=== PATIENT | female | born 1950 | race Two or more races ===

== ENCOUNTER 2020-06-04 20:31 | Inpatient (IN) | payer OTHER ==
[~2020-06-04] VITALS: Ht 154.9 cm; Wt 65.8 kg
[2020-06-05] MEDS ORDERED: OMEPRAZOLE20 MG (08:21)
[2020-06-05] MEDS ORDERED: LEVOTHYROXINE100 MCG (08:21)
[2020-06-05] MEDS ORDERED: LOSARTAN POTASS25 MG (08:21)
[2020-06-05] MEDS ORDERED: GABAPENTIN100 M2 (08:22)
[2020-06-05] MEDS ORDERED: SULINDAC200 MG (08:22)
[2020-06-05] MEDS ORDERED: TRAM1TAB98 (08:22)
[2020-06-05] MEDS ORDERED: ATORVASTATIN CA20 MG (08:22)
== END 2020-06-20 17:22 | disposition home or self-care (01) | DRG 391 ==
LOC: SURH 20:31
PROVIDERS: ADMIT Surgery; ATTEND Surgery
PROC: B24BYZZ Ultrasonography of Heart with Aorta using Other Contrast (ICD-10-PCS; 2020-06-05)
PROC: BW2510Z Computerized Tomography (CT Scan) of Chest, Abdomen and Pelvis using Low Osmolar Contrast, Unenhanced and Enhanced (ICD-10-PCS; 2020-06-08)
PROC: BW21ZZZ Computerized Tomography (CT Scan) of Abdomen and Pelvis (ICD-10-PCS; 2020-06-08)
PROC: 0BBC3ZX Excision of Right Upper Lung Lobe, Percutaneous Approach, Diagnostic (ICD-10-PCS; principal; 2020-06-18)
DX: K57.20 Diverticulitis of large intestine with perforation and abscess without bleeding (principal); K65.1 Peritoneal abscess; A04.72 Enterocolitis due to Clostridium difficile, not specified as recurrent; N82.4 Other female intestinal-genital tract fistulae; D64.9 Anemia, unspecified; E07.81 Sick-euthyroid syndrome; E03.9 Hypothyroidism, unspecified; I10 Essential (primary) hypertension; R53.81 Other malaise; R91.1 Solitary pulmonary nodule; Z20.822 Contact with and (suspected) exposure to COVID-19
CPT/HCPCS: 240

== ENCOUNTER 2020-08-09 16:31 | Emergency (ER) | payer OTHER ==
[~2020-08-09] VITALS: Ht 162.6 cm; Wt 60.3 kg
[~2020-08-09 16:31] MED LIST: ATORVASTATIN CA20 MG; GABAPENTIN100 M2; LEVOTHYROXINE100 MCG; LOSARTAN POTASS25 MG; OMEPRAZOLE20 MG; SULINDAC200 MG; TRAM1TAB98
[2020-08-09] MEDS ORDERED: PEPCID AC10 MG PO (17:32)
[2020-08-09] MEDS ORDERED: LEVOTHYROXINE25 MCG PO (17:32)
[2020-08-09] MEDS ORDERED: PHENERGAN25 MG/1 ML IM (17:33)
[2020-08-09] MEDS ORDERED: INTESTINEX680 M2 PO (17:33)
== END 2020-08-09 20:46 | disposition home or self-care (01) ==
LOC: ER 16:31
DX: K57.90 Diverticulosis of intestine, part unspecified, without perforation or abscess without bleeding (principal); R10.32 Left lower quadrant pain

== ENCOUNTER 2021-03-04 10:30 | Inpatient (IN) | payer OTHER ==
[~2021-03-04] VITALS: Ht 152.4 cm; Wt 59.0 kg
[~2021-03-04 10:30] MED LIST changes: +INTESTINEX680 M2 PO; +LEVOTHYROXINE25 MCG PO; +PEPCID AC10 MG PO; +PHENERGAN25 MG/1 ML IM
[2021-03-04] MEDS ORDERED: VENLAFAXINE H37.5 M2 PO (14:54)
[2021-03-04] MEDS ORDERED: LOSARTAN POTASS25 MG PO (14:54)
[2021-03-04] MEDS ORDERED: GABAPENTIN100 M2 PO (14:55)
[2021-03-04] MEDS ORDERED: ARICEPT5 MG PO (14:55)
[2021-03-04] MEDS ORDERED: TRAM1TAB98 PO (14:56)
[2021-03-04] MEDS ORDERED: ZINC50 M1 PO (14:56)
[2021-03-04] MEDS ORDERED: CALCIUM500 M2 PO (14:57)
[2021-03-04] MEDS ORDERED: C-NATE DHA SOF1 EACH PO (14:57)
[2021-03-10] MEDS ORDERED: PRE PROTEIN1 EACH (16:09)
[2021-03-10] MEDS ORDERED: TRAZODONE HCL50 MG (16:09)
[2021-03-10] MEDS ORDERED: BUSPIRONE HCL10 MG (16:09)
[2021-03-10] MEDS ORDERED: OMEPRAZOLE20 MG (16:10)
[2021-03-10] MEDS ORDERED: ATORVASTATIN CA20 MG (16:10)
[2021-03-10] MEDS ORDERED: ESCITALOPRAM OX10 MG (16:10)
== END 2021-03-31 19:02 | disposition home or self-care (01) | DRG 330 ==
LOC: O/R 03-10 06:13 → SURG 03-10 06:13 → SURH 03-10 10:30 → SURG 03-10 14:05
PROVIDERS: ADMIT Colon & Rectal Surgery; ATTEND Colon & Rectal Surgery
PROC: 0D1B4Z4 Bypass Ileum to Cutaneous, Percutaneous Endoscopic Approach (ICD-10-PCS; 2021-03-10)
PROC: 0DJD8ZZ Inspection of Lower Intestinal Tract, Via Natural or Artificial Opening Endoscopic (ICD-10-PCS; 2021-03-10)
PROC: 0JR Subcutaneous Tissue and Fascia, Replacement (ICD-10-PCS; 2021-03-10)
PROC: 0UQG4ZZ Repair Vagina, Percutaneous Endoscopic Approach (ICD-10-PCS; 2021-03-10)
PROC: 0TQB4ZZ Repair Bladder, Percutaneous Endoscopic Approach (ICD-10-PCS; 2021-03-10)
PROC: 0DTE4ZZ Resection of Large Intestine, Percutaneous Endoscopic Approach (ICD-10-PCS; principal; 2021-03-10 12:00)
PROC: 3E0336Z Introduction of Nutritional Substance into Peripheral Vein, Percutaneous Approach (ICD-10-PCS; 2021-03-16)
PROC: 02HV33Z Insertion of Infusion Device into Superior Vena Cava, Percutaneous Approach (ICD-10-PCS; 2021-03-16)
PROC: BW21ZZZ Computerized Tomography (CT Scan) of Abdomen and Pelvis (ICD-10-PCS; 2021-03-20)
PROC: B34HZZZ Ultrasonography of Right Upper Extremity Arteries (ICD-10-PCS; 2021-03-20)
DX: K57.20 Diverticulitis of large intestine with perforation and abscess without bleeding (principal); N99.72 Accidental puncture and laceration of a genitourinary system organ or structure during other procedure; N82.8 Other female genital tract fistulae; A04.72 Enterocolitis due to Clostridium difficile, not specified as recurrent; N82.4 Other female intestinal-genital tract fistulae; Z16.12 Extended spectrum beta lactamase (ESBL) resistance; Z20.822 Contact with and (suspected) exposure to COVID-19; R91.1 Solitary pulmonary nodule

== ENCOUNTER 2021-03-04 16:01 | Outpatient (CLI) | payer OTHER ==
[~2021-03-04 16:01] MED LIST changes: +ARICEPT5 MG PO; +C-NATE DHA SOF1 EACH PO; +CALCIUM500 M2 PO; +GABAPENTIN100 M2 PO; +LOSARTAN POTASS25 MG PO; +TRAM1TAB98 PO; +VENLAFAXINE H37.5 M2 PO; +ZINC50 M1 PO
== END 2021-03-04 16:11 | disposition home or self-care (01) ==
LOC: RAD 16:01
PROVIDERS: ATTEND Colon & Rectal Surgery
DX: I10 Essential (primary) hypertension (principal); K57.20 Diverticulitis of large intestine with perforation and abscess without bleeding; N32.1 Vesicointestinal fistula

== ENCOUNTER 2021-05-02 20:45 | Inpatient (IN) | payer OTHER ==
[~2021-05-02] VITALS: Ht 149.9 cm; Wt 59.0 kg
[~2021-05-02 20:45] MED LIST changes: +BUSPIRONE HCL10 MG; +ESCITALOPRAM OX10 MG; +PRE PROTEIN1 EACH; +TRAZODONE HCL50 MG
[2021-05-02] MEDS ORDERED: CIPRO500 MG PO (21:09)
[2021-05-02] MEDS ORDERED: SYNTHROID100 MCG PO (21:10)
[2021-05-04] MEDS ORDERED: OXYBUTYNIN CHLOR5 MG (09:52)
[2021-05-04] MEDS ORDERED: LOPERAMIDE2 MG (09:52)
[2021-05-04] MEDS ORDERED: OMEPRAZOLE20 MG (09:53)
[2021-05-04] MEDS ORDERED: VENLAFAXINE H37.5 M1 (09:53)
[2021-05-04] MEDS ORDERED: TRAZODONE HCL50 MG (09:53)
[2021-05-04] MEDS ORDERED: BUSPIRONE HCL10 MG (09:53)
[2021-05-04] MEDS ORDERED: MELATONIN5 M2 (09:53)
[2021-05-25] MEDS ORDERED: LORATADINE10 MG PO (10:33)
[2021-05-25] MEDS ORDERED: ARICEPT5 MG PO (10:33)
[2021-05-25] MEDS ORDERED: INTESTINEX680 M1 PO (10:33)
[2021-05-25] MEDS ORDERED: OMEPRAZOLE20 MG PO (10:33)
[2021-05-25] MEDS ORDERED: LEVOTHYROXINE50 MCG PO (10:33)
[2021-05-25] MEDS ORDERED: LOSARTAN POTASS25 MG PO (10:33)
[2021-05-25] MEDS ORDERED: VENLAFAXINE H37.5 M1 PO (10:33)
== END 2021-05-25 12:47 | disposition home or self-care (01) | DRG 660 ==
LOC: ER 20:45 → MEDJ 05-03 11:18 → MEDI 05-03 11:18 → MEDJ 05-04 11:14
PROVIDERS: Surgery; ADMIT Internal Medicine Geriatric Medicine; ATTEND Internal Medicine Geriatric Medicine
PROC: BT1FYZZ Fluoroscopy of Left Kidney, Ureter and Bladder using Other Contrast (ICD-10-PCS; 2021-05-05)
PROC: 0T778DZ Dilation of Left Ureter with Intraluminal Device, Via Natural or Artificial Opening Endoscopic (ICD-10-PCS; principal; 2021-05-05 13:00)
PROC: 0T143JD Bypass Left Kidney Pelvis to Cutaneous with Synthetic Substitute, Percutaneous Approach (ICD-10-PCS; 2021-05-06)
PROC: 02HV33Z Insertion of Infusion Device into Superior Vena Cava, Percutaneous Approach (ICD-10-PCS; 2021-05-12)
DX: N39.0 Urinary tract infection, site not specified (principal); N20.1 Calculus of ureter; Z16.12 Extended spectrum beta lactamase (ESBL) resistance; N13.6 Pyonephrosis; B96.5 Pseudomonas (aeruginosa) (mallei) (pseudomallei) as the cause of diseases classified elsewhere; E86.0 Dehydration; E87.8 Other disorders of electrolyte and fluid balance, not elsewhere classified; D72.828 Other elevated white blood cell count; E03.8 Other specified hypothyroidism; I11.9 Hypertensive heart disease without heart failure; Z20.822 Contact with and (suspected) exposure to COVID-19

== ENCOUNTER 2021-07-20 12:18 | Outpatient (CLI) | payer OTHER ==
[~2021-07-20 12:18] MED LIST changes: +CIPRO500 MG PO; +INTESTINEX680 M1 PO; +LEVOTHYROXINE50 MCG PO; +LOPERAMIDE2 MG; +LORATADINE10 MG PO; +MELATONIN5 M2; +OMEPRAZOLE20 MG PO; +OXYBUTYNIN CHLOR5 MG; +SYNTHROID100 MCG PO; +VENLAFAXINE H37.5 M1; +VENLAFAXINE H37.5 M1 PO
== END 2021-07-20 12:21 | disposition home or self-care (01) ==
LOC: TOM 12:18
PROVIDERS: ATTEND Surgery
DX: N20.1 Calculus of ureter (principal)

== ENCOUNTER 2021-10-07 08:23 | Outpatient (CLI) | payer OTHER | END 2021-10-07 08:29 | disposition home or self-care (01) | LOC: RX STUDY 08:23 | PROVIDERS: ATTEND Colon & Rectal Surgery | DX: N32.1 Vesicointestinal fistula (principal) ==

== ENCOUNTER 2022-04-30 12:30 | Inpatient (IN) | payer OTHER ==
[~2022-04-30] VITALS: Ht 152.4 cm; Wt 65.3 kg
[~2022-04-30 12:30] MED LIST changes: +AMOX-CLAV 875-1 EAC1 PO; +CELEXA20 MG PO; +CITALOPRAM HBR20 MG; +DIVALPROEX SOD125 M1; +FAMOTIDINE20 MG PO; +LEVOTHYROXINE75 MCG PO; +NAMENDA5 MG PO; +QUETIAPINE FUMA25 MG PO; +TAMS0.4C PO; +depakote PO
[2022-04-30] MEDS ORDERED: SYNTHROID88 MCG PO (14:47)
[2022-04-30] MEDS ORDERED: DEPAKOTE SPRIN125 MG PO (14:47)
== END 2022-05-07 12:53 | disposition home or self-care (01) | DRG 330 ==
LOC: SURH 05-04 07:00 → SURG 05-05 05:38 → O/R 05-05 05:38 → SURG 05-05 10:42
PROVIDERS: ADMIT Colon & Rectal Surgery; ATTEND Colon & Rectal Surgery
PROC: 0DQB4ZZ Repair Ileum, Percutaneous Endoscopic Approach (ICD-10-PCS; principal; 2022-05-05 07:00)
DX: Z43.2 Encounter for attention to ileostomy (principal); K57.20 Diverticulitis of large intestine with perforation and abscess without bleeding; K66.0 Peritoneal adhesions (postprocedural) (postinfection); I11.9 Hypertensive heart disease without heart failure; E03.9 Hypothyroidism, unspecified; F03.90 Unspecified dementia, unspecified severity, without behavioral disturbance, psychotic disturbance, mood disturbance, and anxiety; F32.A Depression, unspecified

== ENCOUNTER 2022-05-15 13:24 | Emergency (ER) | payer OTHER ==
[~2022-05-15] VITALS: Ht 152.4 cm; Wt 72.6 kg
[~2022-05-15 13:24] MED LIST changes: +DEPAKOTE SPRIN125 MG PO; +SYNTHROID88 MCG PO
[2022-05-15] MEDS ORDERED: DEPAKOTE SPRIN125 MG PO (13:50)
[2022-05-15] MEDS ORDERED: CEFDINIR300 MG PO ×2 (13:53→13:55)
[2022-05-15] MEDS ORDERED: BACTRIM DS TAB1 EACH PO (19:59)
== END 2022-05-15 20:38 | disposition home or self-care (01) ==
LOC: ER 13:24
DX: K94.01 Colostomy hemorrhage (principal); Z85.89 Personal history of malignant neoplasm of other organs and systems; Z88.8 Allergy status to other drugs, medicaments and biological substances

== ENCOUNTER 2022-06-28 08:29 | Outpatient (CLI) | payer OTHER ==
[~2022-06-28 08:29] MED LIST changes: +BACTRIM DS TAB1 EACH PO; +CEFDINIR300 MG PO
== END 2022-06-28 08:33 | disposition home or self-care (01) ==
LOC: LAB 08:29
PROVIDERS: ATTEND Surgery
DX: Z20.828 Contact with and (suspected) exposure to other viral communicable diseases (principal); Z20.822 Contact with and (suspected) exposure to COVID-19

== ENCOUNTER 2022-06-29 06:28 | Day surgery (SDC) | payer OTHER | END 2022-06-29 13:05 | disposition home or self-care (01) | LOC: CIR.AMB 06:28 | PROVIDERS: ATTEND Surgery | DX: N13.30 Unspecified hydronephrosis (principal); Z20.822 Contact with and (suspected) exposure to COVID-19; Z88.6 Allergy status to analgesic agent ==

== ENCOUNTER 2022-12-29 06:00 | Outpatient (CLI) | payer OTHER ==
[2022-12-29] MEDS ORDERED: PEPCID AC20 MG PO (10:58)
[2022-12-29] MEDS ORDERED: PROBIOTIC1 EAC4 PO (10:58)
== END 2022-12-29 06:15 | disposition home or self-care (01) ==
LOC: LAB 06:00 → EDSTATUS 10:15 → CIR.AMB 10:15 → ADM 10:15
PROVIDERS: ATTEND Surgery
DX: N13.5 Crossing vessel and stricture of ureter without hydronephrosis (principal)

== ENCOUNTER 2023-01-03 19:59 | Inpatient (IN) | payer OTHER ==
[~2023-01-03] VITALS: Ht 165.1 cm; Wt 68.0 kg
[~2023-01-03 19:59] MED LIST changes: +PEPCID AC20 MG PO; +PROBIOTIC1 EAC4 PO
[2023-01-03 21:36] LABS: HEMATOCRIT 38.9 % (36.0-45.00); HEMOGLOBIN 13.4 g/dL (12.0-15.00); MEAN CELL VOLUME 92.7 fL (80.00-100.00); MEAN CORPUSCULAR HEMOGLOBIN 31.9 pg (27.00-32.0); MEAN CORPUSCULAR HGB CONC 34.4 g/dl (32.0-36.0); PLATELET COUNT 304 K/uL (150-450); RED CELL DISTRIBUTION WIDTH 14.1 % (11.5-14.5)
[2023-01-03 21:57] LABS: INR 0.96; PARTIAL THROMBOPLASTIN TIME 23.4 SECONDS (22.0-34.0); PROTHROMBIN TIME 10.1 SECONDS (9.0-11.5)
[2023-01-03 22:01] LABS: ALBUMIN 3.7 gm/dL (3.4-5.0); BILIRUBIN TOTAL 0.29 mg/dL (0.3-1.2); CALCIUM 9.8 mg/dL (8.5-10.1); CREATININE SERUM 1.47 mg/dL (0.55-1.02); GFR 34.84; GLOBULINA 3.9 G/DL (2.4-3.5); POTASSIUM 3.92 mEq/L (3.5-5.1); TOTAL PROTEIN 7.6 gm/dL (6.4-8.2)
[2023-01-03 23:09] LABS: PH,URINE 5.5 (5.0-8.0); URINE APPEARANCE Turbid; URINE BILIRRUBIN Negative (NEGATIVE); URINE BLOOD Moderate; URINE COLOR Yellow; URINE GLUCOSE Negative (NEGATIVE); URINE LEUKOCYTE Large; URINE NITRATE Positive; URINE UROBILINOGEN 0.2 E.U./dl
[2023-01-03 23:13] LABS: URINE RBC 189.8 uL (0.0-20.8)
[2023-01-03 23:57] LABS: URINE PROTEIN 100 (NEGATIVE); URINE WBC > 5548.3 uL (0.0-23.2)
[2023-01-03 23:58] LABS: URINE EPITHELIAL CELLS 0-4 /HPF
[2023-01-04 06:38] LABS: HEMATOCRIT 37.1 % (36.0-45.00); HEMOGLOBIN 12.3 g/dL (12.0-15.00); MEAN CELL VOLUME 94.7 fL (80.00-100.00); MEAN CORPUSCULAR HEMOGLOBIN 31.4 pg (27.00-32.0); MEAN CORPUSCULAR HGB CONC 33.2 g/dl (32.0-36.0); PLATELET COUNT 133 K/uL (150-450); RED BLOOD COUNT 3.92 M/uL (4.00-6.00)
[2023-01-04 06:48] LABS: ERYTHROCYTE SEDIMENTATION RATE 8 mm/hr
[2023-01-04 07:14] LABS: ANION GAP 11 (10.0-20.0); BLOOD UREA NITROGEN 19 mg/dL (7-18); BUN CREA RATIO 16 (7.0-25.0); CALCIUM 9.1 mg/dL (8.5-10.1); CARBON DIOXIDE 30 mEq/L (21-32); CHLORIDE 102 mmol/L (98-107); CREATININE SERUM 1.17 mg/dL (0.55-1.02); GFR 45.34; GLUCOSE FASTING 86 mg/dL (65-100); OSMOLALITY SERUM 279 MOSM/KG (275-295); PHOSPHOROUS 4.1 mg/dL (2.5-4.9); POTASSIUM 4.14 mEq/L (3.5-5.1); SODIUM 139 mmol/L (136-145)
[2023-01-04 07:22] LABS: C-REACTIVE PROTEIN < 0.29 MG/DL (0.00-0.29)
[2023-01-06 08:00] LABS: HEMATOCRIT 34.9 % (36.0-45.00); HEMOGLOBIN 11.7 g/dL (12.0-15.00); MEAN CELL VOLUME 93.6 fL (80.00-100.00); MEAN CORPUSCULAR HEMOGLOBIN 31.4 pg (27.00-32.0); MEAN CORPUSCULAR HGB CONC 33.6 g/dl (32.0-36.0); PLATELET COUNT 254 K/uL (150-450); RED BLOOD COUNT 3.72 M/uL (4.00-6.00); RED CELL DISTRIBUTION WIDTH 14.1 % (11.5-14.5)
[2023-01-06 10:38] LABS: MANUAL PLATELET COUNT 308
[2023-01-06 11:23] LABS: CALCIUM 8.7 mg/dL (8.5-10.1); CREATININE SERUM 1.06 mg/dL (0.55-1.02); GFR 50.81; MAGNESIUM 2.2 mg/dL (1.8-2.4); PHOSPHOROUS 2.7 mg/dL (2.5-4.9); POTASSIUM 4.75 mEq/L (3.5-5.1)
[2023-01-07 18:35] LABS: PH,URINE 6.5 (5.0-8.0); URINE APPEARANCE Clear; URINE BILIRRUBIN Negative (NEGATIVE); URINE BLOOD Small; URINE COLOR Yellow; URINE GLUCOSE Negative (NEGATIVE); URINE LEUKOCYTE Large; URINE NITRATE Positive; URINE PROTEIN 30 (NEGATIVE); URINE UROBILINOGEN 0.2 E.U./dl
[2023-01-07 18:39] LABS: URINE BACTERIA 263.2 uL (0.0-1933); URINE EPITHELIAL CELLS 4.7 uL (0.0-38.8); URINE RBC 73.2 uL (0.0-20.8); URINE WBC 293.3 uL (0.0-23.2)
[2023-01-10 06:57] LABS: HEMOGLOBIN 10.5 g/dL (12.0-15.00); MEAN CELL VOLUME 93.2 fL (80.00-100.00); MEAN CORPUSCULAR HEMOGLOBIN 31.7 pg (27.00-32.0); PLATELET COUNT 203 K/uL (150-450); RED BLOOD COUNT 3.33 M/uL (4.00-6.00); RED CELL DISTRIBUTION WIDTH 14.2 % (11.5-14.5)
[2023-01-10 07:25] LABS: CALCIUM 8.3 mg/dL (8.5-10.1); CREATININE SERUM 0.87 mg/dL (0.55-1.02); GFR 63.82; POTASSIUM 4.13 mEq/L (3.5-5.1)
[2023-01-10 15:07] LABS: PH,URINE 6.5 (5.0-8.0); URINE APPEARANCE Clear; URINE BILIRRUBIN Negative (NEGATIVE); URINE BLOOD Moderate; URINE COLOR Yellow; URINE GLUCOSE Negative (NEGATIVE); URINE LEUKOCYTE Large; URINE NITRATE Negative; URINE PROTEIN 30 (NEGATIVE); URINE UROBILINOGEN 0.2 E.U./dl
[2023-01-10 15:08] LABS: URINE BACTERIA 144.8 uL (0.0-1933); URINE EPITHELIAL CELLS 4.9 uL (0.0-38.8); URINE RBC 234.6 uL (0.0-20.8); URINE WBC 246.9 uL (0.0-23.2)
[2023-01-11 06:52] LABS: HEMATOCRIT 32.9 % (36.0-45.00); MEAN CELL VOLUME 93.4 fL (80.00-100.00); MEAN CORPUSCULAR HEMOGLOBIN 31.1 pg (27.00-32.0); MEAN CORPUSCULAR HGB CONC 33.3 g/dl (32.0-36.0); PLATELET COUNT 202 K/uL (150-450); RED BLOOD COUNT 3.53 M/uL (4.00-6.00)
[2023-01-12] MEDS ORDERED: PEPCID AC20 MG PO (13:56)
[2023-01-12] MEDS ORDERED: LOSARTAN POTASS25 MG PO (13:56)
[2023-01-12] MEDS ORDERED: SYNTHROID88 MCG PO (13:56)
[2023-01-12] MEDS ORDERED: POM (MEDICAMENTO EN PO ×2 (13:56)
[2023-01-12] MEDS ORDERED: QUETIAPINE FUMA25 MG PO (13:56)
[2023-01-12] MEDS ORDERED: ARICEPT10 MG PO (13:56)
[2023-01-12] MEDS ORDERED: PROBIOTIC1 EAC4 PO (13:56)
[2023-01-12] MEDS ORDERED: NAMENDA5 MG PO (13:56)
== END 2023-01-12 14:53 | disposition home or self-care (01) | DRG 699 ==
LOC: ER 19:59 → SURH 22:20
PROVIDERS: General Practice; Internal Medicine; Internal Medicine Infectious Disease; Surgery; ADMIT Internal Medicine Geriatric Medicine; ATTEND Internal Medicine Geriatric Medicine
PROC: 02HV33Z Insertion of Infusion Device into Superior Vena Cava, Percutaneous Approach (ICD-10-PCS; 2023-01-05)
PROC: 0TPD8DZ Removal of Intraluminal Device from Urethra, Via Natural or Artificial Opening Endoscopic (ICD-10-PCS; 2023-01-09)
PROC: 0T7D8DZ Dilation of Urethra with Intraluminal Device, Via Natural or Artificial Opening Endoscopic (ICD-10-PCS; principal; 2023-01-09 08:15)
DX: T83.592A Infection and inflammatory reaction due to indwelling ureteral stent, initial encounter (principal); N13.1 Hydronephrosis with ureteral stricture, not elsewhere classified; N39.0 Urinary tract infection, site not specified; Z16.24 Resistance to multiple antibiotics; B96.5 Pseudomonas (aeruginosa) (mallei) (pseudomallei) as the cause of diseases classified elsewhere; E03.9 Hypothyroidism, unspecified; I10 Essential (primary) hypertension; G30.9 Alzheimer's disease, unspecified; F02.80 Dementia in other diseases classified elsewhere, unspecified severity, without behavioral disturbance, psychotic disturbance, mood disturbance, and anxiety

== ENCOUNTER 2023-02-15 09:40 | Outpatient (CLI) | payer OTHER ==
[~2023-02-15 09:40] MED LIST changes: +ARICEPT10 MG PO; +POM (MEDICAMENTO EN PO
== END 2023-02-15 09:51 | disposition home or self-care (01) ==
LOC: TOM 09:40
DX: R10.30 Lower abdominal pain, unspecified (principal); K57.32 Diverticulitis of large intestine without perforation or abscess without bleeding
CPT/HCPCS: 74177; Q9965

== ENCOUNTER 2024-07-31 11:11 | Outpatient (CLI) | payer OTHER | END 2024-07-31 11:19 | disposition home or self-care (01) | LOC: TOM 11:11 | DX: R10.9 Unspecified abdominal pain (principal); K46.9 Unspecified abdominal hernia without obstruction or gangrene | CPT/HCPCS: 74177; Q9965 ==